=== PATIENT | male | born 1990 | race Caucasian/White ===

== ENCOUNTER 2024-01-20 12:45 | Emergency (ER) | payer BC ==
[~2024-01-20] VITALS: Ht 182.9 cm; Wt 76.0 kg
[2024-01-20] MEDS ORDERED: CETI10CA2 PO (13:13)
[2024-01-20] MEDS ORDERED: AMOX875T2 PO (13:14)
[2024-01-20] MEDS ORDERED: CEFD1CAP9 PO (14:00)
[2024-01-20] MEDS: CEFDINIR 300 MG CAP (OMNICEF) PO ONE (14:15)
[2024-01-20 14:20] VITALS: BP 130/74; TEMP 97.4; O2SAT 100
== END 2024-01-20 14:22 | disposition home or self-care (01) ==
LOC: M ED 12:45
DX: H66.91 Otitis media, unspecified, right ear (principal); Z79.2 Long term (current) use of antibiotics; Z79.899 Other long term (current) drug therapy